=== PATIENT | male | born 1990 ===

== ENCOUNTER 2019-07-15 20:55 | Emergency (ER) | payer OTHER ==
[~2019-07-15] VITALS: Ht 190.5 cm; Wt 170.1 kg
[2019-07-16] MEDS ORDERED: ZYNCOF 20-400120 ML PO (02:21)
[2019-07-16] MEDS ORDERED: OSEL75CA PO (02:21)
[2019-07-16] MEDS ORDERED: BUDESONIDE0.5 MG/2 M IH (02:21)
[2019-07-16] MEDS ORDERED: ALBUTEROL2.5 MG/3 M IH (02:21)
== END 2019-07-16 02:44 ==
LOC: ER 20:55
DX: B34.9 Viral infection, unspecified (principal)